=== PATIENT | male | born 1950 | race Two or more races ===

== ENCOUNTER 2019-01-16 08:18 | Day surgery (SDC) | payer MEDICARE, OTHER ==
[~2019-01-16] VITALS: Ht 165.1 cm; Wt 83.0 kg
[~2019-01-16 08:18] MED LIST: ASPIR-LOW81 MG PO; COQ1050 MG PO; D-20002000 UNIT PO; FISH OIL DR 1,1 EAC1 PO; LIPITOR40 MG PO; METOPROLOL TAR100 MG PO; VITAMIN C250 MG PO
--- NOTE | 2019-01-16 09:45 | NUR ---
01/16/19 0945 Mary Alice Hernandez 0941- PT TO PACU. SP02>95% ON RA. BREATHING EASY AND UNLABORED. RESPONDS TO VOICE. DENIES P/N.
--- NOTE | 2019-01-17 09:17 | OR ---
[facility] [address], [place] [address] Signed DATE OF OPERATION: 01/16/2019 SURGEON: Kimberly Hernandez MD PREOPERATIVE DIAGNOSES: 1. Screening. 2. Benign anal polyp (2008). 3. Hemorrhoids. POSTOPERATIVE DIAGNOSES: 1. Ythnluf-ty-pzhgwywo sigmoid diverticulosis. 2. Indurated prostate gland (left greater than right). 3. Minimal internal and external hemorrhoids. PROCEDURE PERFORMED: Colonoscopy without biopsy. ESTIMATED BLOOD LOSS: None. INDICATIONS: Pelon is a 68-year-old gentleman, asked to see me for a followup colonoscopy. He had his last colonoscopy in 2008. He said he is doing great. He is enjoying his senior living very much. [place] very [place]. He said he has no lower GI complaints. No family history of colon cancer or polyps. In the office, I gave him a pamphlet on colonoscopy, we looked at that together along with the risks including, but not limited to gas, bloating, crampy abdominal pain, bleeding, perforation, and other unforeseen comorbidities. He also understands the need for IV conscious sedation. He expressed understanding and wished to proceed. PROCEDURE NOTE: Pelon was taken into our endoscopy suite and placed in the left lateral decubitus position. He was given IV sedation with 7 mg of Versed and 100 mcg of fentanyl. A digital rectal exam was performed. He has good sphincter tone. Very minimal in the way of external hemorrhoids. His prostate gland is moderately enlarged. The left is certainly greater than the right. The adult colonoscope was then introduced and advanced all around to the hepatic flexure without difficulty. It took some extra sedation as well as abdominal compression in order to advance the scope around hepatic flexure and down into the cecum itself. His prep was good. We suctioned out a little bit of fluid in the cecum. We could see all the cecum except right at the appendiceal Electronically Signed By: KIMBERLY HERNANDEZ MD 01/17/19 0917 PATIENT NAME: LILIANA SOLORIO OPERATIVE REPORT DATE OF : 48 REPORT #: [id number] PHYSICIAN: KIMBERLY HERNANDEZ MD PCP: NO PRIMARY CARE PHYSICIAN REPORT IS CONFIDENTIAL AND NOT TO BE RELEASED WITHOUT AUTHORIZATION [facility] [address], [place] [address] Signed orifice due to the fluid. The scope was slowly withdrawn. We took pictures throughout for photodocumentation. On this occasion, he does have some diverticulosis in the sigmoid colon, they were moderate in size, [id number] in number, and scattered about. Once in the rectum, the scope had been retroflexion and there was a little or no internal hemorrhoid tissue. After this, the gas was suctioned out. The colonoscope removed. Pelon tolerated the procedure quite well. RECOMMENDATIONS: Pelon is welcome to follow up in 10 years for repeat colonoscopy so long as his health holds up. MD TORRES Romeo/MIGNONL /[id number] cc: Kimberly MD Jie Murcia MD Copies: KIMBERLY HERNANDEZ MD, MERSHED MD ~ Electronically Signed By: KIMBERLY HERNANDEZ MD 01/17/19 0917 PATIENT NAME: LILIANA SOLORIO OPERATIVE REPORT DATE OF : 48 REPORT #: [id number] PHYSICIAN: KIMBERLY HERNANDEZ MD PCP: NO PRIMARY CARE PHYSICIAN REPORT IS CONFIDENTIAL AND NOT TO BE RELEASED WITHOUT AUTHORIZATION
== END 2019-01-16 10:55 | disposition home or self-care (01) ==
LOC: DS 08:18 → OPS 08:18
PROVIDERS: Colon & Rectal Surgery
PROC: 0DJD8ZZ Inspection of Lower Intestinal Tract, Via Natural or Artificial Opening Endoscopic (ICD-10-PCS; principal; 2019-01-16 09:45)
DX: Z12.11 Encounter for screening for malignant neoplasm of colon (principal); K57.30 Diverticulosis of large intestine without perforation or abscess without bleeding; K64.8 Other hemorrhoids; K64.4 Residual hemorrhoidal skin tags; N42.89 Other specified disorders of prostate; I10 Essential (primary) hypertension; E78.5 Hyperlipidemia, unspecified; Z86.010 Personal history of colon polyps; Z79.82 Long term (current) use of aspirin; Z79.899 Other long term (current) drug therapy
CPT/HCPCS: 99153; G0500; J2250; J3010; J7120

== ENCOUNTER 2020-11-14 19:37 | Emergency (ER) | payer MEDICARE, OTHER ==
[~2020-11-14] VITALS: Ht 170.2 cm; Wt 79.4 kg
== END 2020-11-14 22:45 | disposition home or self-care (01) ==
LOC: ED 19:37
DX: U07.1 COVID-19 (principal); I10 Essential (primary) hypertension; Z79.82 Long term (current) use of aspirin; Z79.899 Other long term (current) drug therapy
CPT/HCPCS: 71045; 99283-25; C9803; U0003